=== PATIENT | male | born 1955 | race Caucasian/White ===

== ENCOUNTER 2019-10-20 01:45 | Emergency (ER) | payer MEDICARE, BC ==
[~2019-10-20] VITALS: Ht 185.4 cm; Wt 210.0 kg
[2019-10-20] MEDS ORDERED: LORazepam 1 MG tablet PO ONE (02:20)
[2019-10-20 02:46] LABS: ALANINE AMINOTRANSFERASE 64 U/L (12-78); ALBUMIN/GLOBULIN RATIO 1.2 (1.1-1.5); ALKALINE PHOSPHATASE 102 IU/L (46-116); ANION GAP 4 (8-16); ASPARTATE AMINO TRANSFERASE 31 U/L (10-37); BILIRUBIN,TOTAL 0.7 MG/DL (0.1-1.0); BLOOD UREA NITROGEN 14 MG/DL (7-18); BUN/CREATININE RATIO 15.6 (5.4-32.0); CALCIUM 8.8 MG/DL (8.5-10.1); CHLORIDE 105 MMOL/L (99-107); GLUCOSE 108 MG/DL (70-104); POTASSIUM 4.4 MMOL/L (3.5-5.1); SODIUM 141 MMOL/L (135-145); TOTAL CARBON DIOXIDE 32.5 MMOL/L (24-32); TOTAL PROTEIN 7.4 G/DL (6.4-8.2); eGFR 86 ML/MIN
--- NOTE | 2019-10-20 02:47 | NUR ---
pt reports nausea after being given the ativan tablet. Dr. North updated, verbal received for Zofran 4 mg iv. at bedside. Pt given pillow for under his knees fr comfort. VSS.
[2019-10-20] MEDS ORDERED: ondansetron/PF 4mg/2ml inj IV ONE (02:50)
[2019-10-20 03:27] LABS: BASOPHILS % (AUTO) 0.6 % (0-1); EOSINOPHILS # (AUTO) 0.1 X10'3 (0-0.9); EOSINOPHILS % (AUTO) 2.3 % (0-6); HEMATOCRIT 47.9 % (42.0-52.0); HEMOGLOBIN 16.4 g/dl (14.0-17.9); LYMPHOCYTES # (AUTO) 2.1 X10'3 (1.1-4.8); LYMPHOCYTES % (AUTO) 35.5 % (21-51); MEAN CORPUSCULAR HEMOGLOBIN 32.2 PG (27.0-31.0); MEAN CORPUSCULAR HGB CONC 34.3 g/dL (33.0-36.5); MEAN PLATELET VOLUME 9.6 FL (7.4-10.4); MONOCYTES # (AUTO) 0.6 X10'3 (0-0.9); MONOCYTES % (AUTO) 9.4 % (2-12); NEUTROPHILS # (AUTO) 3.2 X10'3 (1.8-7.7); NEUTROPHILS % (AUTO) 52.2 % (42-75); PLATELET COUNT 155 X10'3 (140-440); RED CELL DISTRIBUTION WIDTH 13.8 % (11.5-14.5); WHITE BLOOD COUNT 6.1 X10'3 (4.5-11.0)
--- NOTE | 2019-10-20 03:44 | NUR ---
Dr. North talking with pt and about lab results. decision made to do 3 hr trop then likely discharge to f/u with Dr. Lopez.
[2019-10-20] MEDS ORDERED: ALPR-623 PO (03:46)
--- NOTE | 2019-10-20 03:48 | NUR ---
Dr. North updated that Pt requests if given an antianxiety med, that it not be Ativan, as he thinks it made him nauseas earlier.
[2019-10-20] MEDS ORDERED: acetaminophen 325mg tablet PO ONE (04:00)
--- NOTE | 2019-10-20 04:42 | NUR ---
PT AND UPDATED THAT 3 HR TROP WILL BE DRAWN AT 5 AM.
[2019-10-20 05:59] VITALS: BP 136/72
== END 2019-10-20 06:01 | disposition home or self-care (01) ==
LOC: ER 01:46
DX: R07.89 Other chest pain (principal); I48.91 Unspecified atrial fibrillation; I10 Essential (primary) hypertension; Z98.890 Other specified postprocedural states; Z88.0 Allergy status to penicillin; Z88.1 Allergy status to other antibiotic agents; Z88.8 Allergy status to other drugs, medicaments and biological substances
CPT/HCPCS: 36415; 71045; 80053; 83735; 83880; 84484; 85025; 93005; 96374; 99284; J2405

== ENCOUNTER 2021-06-08 12:38 | Emergency (ER) | payer MEDICARE, BC ==
[~2021-06-08] VITALS: Ht 185.4 cm; Wt 118.2 kg
[~2021-06-08 12:38] MED LIST: APIX5TAB3 PO; FLEC100T35 PO; GABA600T13 PO; HYDR-3973 PO; LOSA100T57 PO; METO25TA6 PO; NORT10CA5 PO; OMEP-50 PO
[2021-06-08] MEDS ORDERED: normal saline 1000ml 1,000 ML IV ONE (12:55)
[2021-06-08] MEDS ORDERED: diltiazem 5mg/ml 5ml inj. IV ONE (12:55)
[2021-06-08 13:17] LABS: BASOPHILS % (AUTO) 0.5 % (0-1); EOSINOPHILS # (AUTO) 0.2 X10'3 (0-0.9); EOSINOPHILS % (AUTO) 2.6 % (0-6); HEMATOCRIT 43.9 % (42.0-52.0); HEMOGLOBIN 14.5 g/dl (14.0-17.9); LYMPHOCYTES # (AUTO) 2.9 X10'3 (1.1-4.8); LYMPHOCYTES % (AUTO) 38.9 % (21-51); MEAN CORPUSCULAR HEMOGLOBIN 31.2 PG (27.0-31.0); MEAN CORPUSCULAR VOLUME 94.6 FL (78-98); MEAN PLATELET VOLUME 9.6 FL (7.4-10.4); MONOCYTES # (AUTO) 0.6 X10'3 (0-0.9); MONOCYTES % (AUTO) 8.3 % (2-12); NEUTROPHILS # (AUTO) 3.7 X10'3 (1.8-7.7); NEUTROPHILS % (AUTO) 49.7 % (42-75); PLATELET COUNT 212 X10'3 (140-440); RED BLOOD COUNT 4.64 X10'6 (4.70-6.10); RED CELL DISTRIBUTION WIDTH 13.5 % (11.5-14.5); WHITE BLOOD COUNT 7.4 X10'3 (4.5-11.0)
[2021-06-08] MEDS ORDERED: metoprolol tartrate 1mg/ml inj IV SCH (13:40)
--- NOTE | 2021-06-08 13:40 | NUR ---
notified dr goodman regarding pt hr 160-170's as per he will order meds .will cont to monitor and medicate the pt.
--- NOTE | 2021-06-08 13:44 | NUR ---
pt hr 91 at this time.
[2021-06-08 13:55] LABS: ALANINE AMINOTRANSFERASE 46 U/L (12-78); ALBUMIN 3.7 G/DL (3.4-5.0); ALBUMIN/GLOBULIN RATIO 0.9 (1.1-1.5); ALKALINE PHOSPHATASE 129 IU/L (46-116); ANION GAP 9 (8-16); BILIRUBIN,TOTAL 0.5 MG/DL (0.1-1.0); BLOOD UREA NITROGEN 10 MG/DL (7-18); BUN/CREATININE RATIO 11.6 (5.4-32.0); CALCIUM 8.5 MG/DL (8.5-10.1); CHLORIDE 104 MMOL/L (99-107); CREATININE 0.86 MG/DL (0.60-1.10); GLUCOSE 111 MG/DL (70-104); SODIUM 143 MMOL/L (135-145); TOTAL CARBON DIOXIDE 30.2 MMOL/L (24-32); TOTAL PROTEIN 7.6 G/DL (6.4-8.2); eGFR 90 ML/MIN
[2021-06-08 14:02] LABS: ASPARTATE AMINO TRANSFERASE 30 U/L (10-37); MAGNESIUM 2.3 MG/DL (1.5-2.4); POTASSIUM 4.4 MMOL/L (3.5-5.1)
[2021-06-08] MEDS ORDERED: etomidate 2mg/ml inj. IV ONE (14:05)
[2021-06-08 15:25] VITALS: BP 133/88
== END 2021-06-08 15:27 | disposition home or self-care (01) ==
LOC: ER 12:39
DX: I48.20 Chronic atrial fibrillation, unspecified (principal); R06.02 Shortness of breath; R55 Syncope and collapse; R00.0 Tachycardia, unspecified; I10 Essential (primary) hypertension; Z85.9 Personal history of malignant neoplasm, unspecified; Z98.890 Other specified postprocedural states; Z88.0 Allergy status to penicillin; Z88.1 Allergy status to other antibiotic agents; Z88.8 Allergy status to other drugs, medicaments and biological substances; Z79.899 Other long term (current) drug therapy
CPT/HCPCS: 36415; 71045; 80053; 83735; 83880; 84484; 85025; 92960; 93005; 94799; 96361; 96374; 96375; 99285; J7030; J3490

== ENCOUNTER 2021-11-02 08:46 | Emergency (ER) | payer MEDICARE, BC ==
[~2021-11-02] VITALS: Ht 185.4 cm; Wt 96.8 kg
[2021-11-02] MEDS ORDERED: fentaNYL/PF 50MCG/1 ML 2ML syringe IV ONE (09:00)
[2021-11-02] MEDS ORDERED: ondansetron/PF 4mg/2ml inj IV ONE ×2 (09:00)
[2021-11-02] MEDS ORDERED: adenosine 3mg/ml 2ml vial IV ONE ×3 (09:00→09:05)
[2021-11-02] MEDS ORDERED: heparin 10,000 units/1 ML INJ IV ONE (09:00)
[2021-11-02] MEDS ORDERED: etomidate 2mg/ml inj. IV ONE (09:00)
--- NOTE | 2021-11-02 09:00 | NUR ---
pt appears to be in [facility] MD at bedside 3 doses of adenosine given without converscion etomidate given pt sedated and syncronized cardio version performed at 200js converscion successful repeat ekg completed
[2021-11-02 09:24] LABS: BASOPHILS % (AUTO) 0.5 % (0-1); EOSINOPHILS # (AUTO) 0.1 X10'3 (0-0.9); EOSINOPHILS % (AUTO) 1.6 % (0-6); HEMOGLOBIN 16.1 g/dl (14.0-17.9); LYMPHOCYTES # (AUTO) 3.1 X10'3 (1.1-4.8); LYMPHOCYTES % (AUTO) 42.8 % (21-51); MEAN CORPUSCULAR HEMOGLOBIN 31.4 PG (27.0-31.0); MEAN CORPUSCULAR HGB CONC 33.5 g/dL (33.0-36.5); MEAN CORPUSCULAR VOLUME 93.5 FL (78-98); MEAN PLATELET VOLUME 9.8 FL (7.4-10.4); MONOCYTES # (AUTO) 0.6 X10'3 (0-0.9); MONOCYTES % (AUTO) 8.4 % (2-12); NEUTROPHILS # (AUTO) 3.4 X10'3 (1.8-7.7); NEUTROPHILS % (AUTO) 46.7 % (42-75); PLATELET COUNT 213 X10'3 (140-440); RED BLOOD COUNT 5.14 X10'6 (4.70-6.10); RED CELL DISTRIBUTION WIDTH 14.3 % (11.5-14.5); WHITE BLOOD COUNT 7.3 X10'3 (4.5-11.0)
[2021-11-02 09:31] LABS: ALBUMIN 3.7 G/DL (3.4-5.0); ALBUMIN/GLOBULIN RATIO 1.1 (1.1-1.5); ANION GAP 9 (8-16); BILIRUBIN,TOTAL 0.8 MG/DL (0.1-1.0); BLOOD UREA NITROGEN 10 MG/DL (7-18); BUN/CREATININE RATIO 8.5 (5.4-32.0); CALCIUM 8.8 MG/DL (8.5-10.1); CHLORIDE 102 MMOL/L (99-107); CREATININE 1.17 MG/DL (0.60-1.10); GLUCOSE 193 MG/DL (70-104); POTASSIUM 4.7 MMOL/L (3.5-5.1); SODIUM 140 MMOL/L (135-145); TOTAL CARBON DIOXIDE 28.6 MMOL/L (24-32); eGFR 63 ML/MIN
[2021-11-02 09:32] LABS: ALANINE AMINOTRANSFERASE 73 U/L (12-78); ALKALINE PHOSPHATASE 91 IU/L (46-116); ASPARTATE AMINO TRANSFERASE 32 U/L (10-37)
[2021-11-02 09:34] LABS: D-DIMER 0.23 MG/L FEU (0-0.50)
[2021-11-02 11:19] VITALS: BP 129/74
== END 2021-11-02 11:20 | disposition home or self-care (01) ==
LOC: ER 08:47
DX: R00.0 Tachycardia, unspecified (principal); R42 Dizziness and giddiness; R51.9 Headache, unspecified; I48.91 Unspecified atrial fibrillation; I10 Essential (primary) hypertension; Z98.890 Other specified postprocedural states; Z88.0 Allergy status to penicillin; Z88.1 Allergy status to other antibiotic agents; Z88.2 Allergy status to sulfonamides; Z88.8 Allergy status to other drugs, medicaments and biological substances
CPT/HCPCS: 36415; 71045; 80053; 83880; 84443; 84484; 85025; 85379; 93005; 94799; 96374; 96375; 96376; 99285; J0153; J2405; J3010; J3490; 94760

== ENCOUNTER 2022-03-01 05:25 | Inpatient (IN) | payer MEDICARE, BC ==
[2022-02-20 12:31] LABS: BASOPHILS % (AUTO) 0.3 % (0-1); EOSINOPHILS # (AUTO) 0.1 X10'3 (0-0.9); EOSINOPHILS % (AUTO) 3.1 % (0-6); LYMPHOCYTES # (AUTO) 1.7 X10'3 (1.1-4.8); MEAN CORPUSCULAR HEMOGLOBIN 31.3 PG (27.0-31.0); MEAN CORPUSCULAR HGB CONC 33.4 g/dL (33.0-36.5); MEAN CORPUSCULAR VOLUME 93.6 FL (78-98); MEAN PLATELET VOLUME 9.7 FL (7.4-10.4); MONOCYTES # (AUTO) 0.4 X10'3 (0-0.9); MONOCYTES % (AUTO) 8.3 % (2-12); NEUTROPHILS # (AUTO) 2.5 X10'3 (1.8-7.7); NEUTROPHILS % (AUTO) 52.3 % (42-75); PRE OP HEMATOCRIT 44.3 % (42.0-52.0); PRE OP HEMOGLOBIN 14.8 g/dL (14.0-17.9); PRE OP PLATELET COUNT 169 X10'3 (140-440); RED BLOOD COUNT 4.74 X10'6 (4.70-6.10)
[2022-02-20 12:46] LABS: ALBUMIN 3.6 G/DL (3.4-5.0); ALBUMIN/GLOBULIN RATIO 1.1 (1.1-1.5); ALKALINE PHOSPHATASE 89 IU/L (46-116); BLOOD UREA NITROGEN 12 MG/DL (7-18); BUN/CREATININE RATIO 14.8 (5.4-32.0); CALCIUM 8.6 MG/DL (8.5-10.1); CREATININE 0.81 MG/DL (0.60-1.10); PRE OP ALT 61 U/L (30-65); PRE OP AST 28 U/L (10-37); PRE OP BILIRUB, TOTAL 0.6 MG/DL (0.0-1.0); PRE OP GLUCOSE 111 MG/DL (70-104); eGFR > 90 ML/MIN
[2022-02-20 12:47] LABS: TOTAL CARBON DIOXIDE 33.4 MMOL/L (24-32)
[2022-02-20 13:09] LABS: CHLORIDE 103 MMOL/L (99-107); PRE OP ANION GAP 4 (8-16); PRE OP POTASSIUM 4.2 MMOL/L (3.4-5.1); PRE OP SODIUM 140 MMOL/L (135-145)
[~2022-03-01] VITALS: Ht 185.4 cm; Wt 98.0 kg
[2022-03-01] VITALS (24 sets, daily range): BP systolic 100–153; BP diastolic 59–91
[~2022-03-01 05:25] MED LIST changes: -OMEP-50 PO; +OMEP20CA16 PO; +ringers solution, lacted 1,000 ML IV SCH
[2022-03-01] MEDS ORDERED: vancomycin 1,500 MG in NS 300ml IV soln IV ONE (05:30)
[2022-03-01] MEDS ORDERED: famotidine 20mg tablet PO ONE (05:30)
[2022-03-01] MEDS ORDERED: DOCUMENT DATE & TIME OF BETA-BLOCKER PO ONE (05:30)
[2022-03-01] MEDS ORDERED: tranexamic acid inj. 1,000 MG in normal saline 100ml IV soln 90 ML IV ONE (05:30)
--- NOTE | 2022-03-01 06:02 | NUR ---
PATIENT HAS SEEN ORTHO DVD, RECEIVED OINTMENT AND TAKEN SHOWERS PREOP ORDERED. CSM INTACT
[2022-03-01] MEDS ORDERED: ketorolac trometh. 30mg/ml inj. ONE (07:01)
[2022-03-01] MEDS ORDERED: morphine 10mg/ml inj. ONE (07:02)
[2022-03-01] MEDS ORDERED: Thrombin (Bovine) 5,000 unit vial TP ONE (07:02)
[2022-03-01] MEDS ORDERED: epiNEPHrine 1 mg/ml inj ONE (07:02)
[2022-03-01] MEDS ORDERED: vancomycin 1,000mg inj ONE (07:02)
[2022-03-01] MEDS ORDERED: ROPIVAcaine 0.5% (5mg/ml) 30ml vial ONE (07:02)
[2022-03-01] MEDS ORDERED: scopolamine 1mg/72 hr patch TD ONE (07:21)
[2022-03-01] MEDS ORDERED: tetracaine 1% (10mg/ml) pres. free inj. ONE (07:33)
[2022-03-01] MEDS ORDERED: fentaNYL/PF 50MCG/1 ML 2ML syringe ONE ×2 (07:34→09:23)
[2022-03-01] MEDS ORDERED: MIDAZolam 1 MG/ML 5ML VIAL ONE (07:35)
[2022-03-01] MEDS ORDERED: cloNIDine hcl/PF 100mcg/ml inj ONE (07:39)
[2022-03-01] MEDS ORDERED: morphine 2 MG/ML inj. syringe IV PRN (09:45)
[2022-03-01] MEDS ORDERED: meperidine/PF 25mg/ml syringe IV PRN ×3 (09:45)
[2022-03-01] MEDS ORDERED: proCHLORperazine 10 MG/2 ml inj IV PRN (09:45)
[2022-03-01] MEDS ORDERED: ROPIVAcaine 0.2% (10 MG/5 ML) BOLUS INJECTION ADDCANAL PRN (09:45)
[2022-03-01] MEDS ORDERED: ondansetron/PF 4mg/2ml inj IV PRN ×2 (09:45→11:05)
[2022-03-01] MEDS ORDERED: ROPIVAcaine 0.2%/PF PUMP/bolus 545 ML ADDCANAL SCH (09:45)
[2022-03-01] MEDS ORDERED: morphine 4 MG/ML inj SYRINge IV PRN (09:45)
[2022-03-01] MEDS ORDERED: ringers solution, lacted 1,000 ML IV SCH (09:45)
[2022-03-01] MEDS ORDERED: gelatin sponge, absorbable (Gelfoam 100) sponge TP ONE (09:46)
[2022-03-01] MEDS ORDERED: diphenhydrAMINE 50 mg/ml inj ONE (09:56)
[2022-03-01] MEDS ORDERED: albumin (Human) 5% 250ml 500 ML IV ONE (09:56)
[2022-03-01] MEDS ORDERED: propofol inj 60 ML IV ONE (09:56)
[2022-03-01] MEDS ORDERED: dexamethasone sod phosphate 4mg/ml inj. ONE (09:56)
[2022-03-01] MEDS ORDERED: hydrALAZINE 20mg/ml inj. IV ONE (09:57)
[2022-03-01] MEDS ORDERED: ceFAZolin 1000mg inj ONE (09:57)
[2022-03-01] MEDS ORDERED: acetaminophen 1,000mg/100ml IV 100 ML IV ONE (10:47)
[2022-03-01] MEDS ORDERED: HYDROmorphone 1 mg/ml syringe IV PRN (11:05)
[2022-03-01] MEDS ORDERED: naloxone 0.4 mg/ml inj IV PRN (11:05)
[2022-03-01] MEDS ORDERED: HYDROmorphone inj. 0.5 MG/0.5 ML DISP.SYRIN IV PRN (11:05)
[2022-03-01] MEDS ORDERED: magnesium hydroxide 30ml (MOM) UD suspension PO PRN (11:05)
[2022-03-01] MEDS ORDERED: oxyCODONE IR 5mg (immed. release) tablet PO PRN (11:05)
[2022-03-01] MEDS ORDERED: diphenhydrAMINE 25mg capsule PO PRN ×2 (11:05)
[2022-03-01] MEDS: potassium cl 20mEq in 1/2 NS 1,000 ML IV SCH ×2 (11:05→21:15)
[2022-03-01] MEDS ORDERED: bisacodyl 10mg suppository rectal RC PRN (11:05)
[2022-03-01] MEDS ORDERED: acetaminophen 325mg tablet PO PRN (11:05)
--- NOTE | 2022-03-01 11:14 | NUR ---
Received from OR via BED , accompanied by Anesthesiologist KIKO and report given by Anesthesiolgist. PT IS SLEEPY, AROUSABLE TO VERBAL STIMULATION, IV SITE CHECKED INFUSING WELL, ISTAT ORDERED BY DR HOOVER, COMPLETED HGB 12.6. ICE PACK IN PLACE, PT ABLE TO MOVE UPPER ARMS DECREASED MOVEMENT AND SENSATION TO LOWER EXTREMITIES AT THIS TIME.
[2022-03-01] MEDS ORDERED: tranexamic acid inj. 1,000 MG in normal saline 100ml IV soln 100 ML IV ONE (11:24)
--- NOTE | 2022-03-01 12:44 | NUR ---
REPORT GIVEN TO FANNIE BLANTON, TXA 1415 DOSE ON CHART WILL BE TRANSFERRED WITH PT. SCOPALOMINE PATCH REMOVED FROM PT PER DR HOOVER
--- NOTE | 2022-03-01 12:45 | NUR ---
Recieved report from educational/development assistant
[2022-03-01] MEDS ORDERED: gabapentin 300mg capsule PO SCH (13:00)
--- NOTE | 2022-03-01 13:14 | NUR ---
PT TRANSFERRED TO ROOM VIA BED WITH KENYATTA. PT IS PAIN FREE, NO SIGNS OF BLEEDING, FANNIE AT BEDSIDE UPON ARRIVE, CALL LIGHT IN REACH AND ATTACHED TO VITAL MACHINE. SPOKE TO PTS WHO WAS IN THE PARKING LOT, PTS ROOM NUMBER WAS GIVEN, SHE STATED SHE WAS ON HER WAY UP.
[2022-03-01] MEDS: oxyCODONE IR 5mg (immed. release) tablet PO PRN ×2 (14:02→21:06)
[2022-03-01] MEDS: ceFAZolin/D5W- 1GM premix 50 ML IV SCH (16:22)
[2022-03-01] MEDS: acetaminophen 325mg tablet PO SCH ×2 (16:23→21:08)
--- NOTE | 2022-03-01 19:10 | NUR ---
requested RX send vanco dose for 1999 and input home medications as were ordered via telephone from dr. Aguilar
--- NOTE | 2022-03-01 19:40 | NUR ---
cleaned right arm old IV site. patient attempted to pull off iv and bled earlier. cleaned dried blood. found multiple skin tears, cleaned, covered with large bandaid, applied gentle pressure. pt refused neosporin "I'm allergic"
[2022-03-01] MEDS ORDERED: vancomycin/NS 1 GM ADD-VANTAGE 250 ML IV SCH (20:00)
[2022-03-01] MEDS ORDERED: apixaban 5mg tablet PO SCH (20:00)
--- NOTE | 2022-03-01 20:00 | NUR ---
pt noted sensation from inside ankle to knee tingling. will continue to monitor
[2022-03-01] MEDS ORDERED: losartan 50mg tablet PO SCH (21:00)
[2022-03-01] MEDS ORDERED: nortriptyline 10mg capsule PO SCH (21:00)
[2022-03-01] MEDS: metoprolol tartrate 25mg tablet PO SCH (21:00)
[2022-03-01] MEDS ORDERED: sennosides 8.6mg tablet PO SCH (21:00)
[2022-03-01] MEDS: gabapentin 300mg capsule PO SCH (21:09)
[2022-03-01] MEDS: flecainide 50mg tablet PO SCH (21:37)
[2022-03-02] MEDS: ceFAZolin/D5W- 1GM premix 50 ML IV SCH (00:41)
[2022-03-02] MEDS: oxyCODONE IR 5mg (immed. release) tablet PO PRN ×2 (00:42→05:24)
[2022-03-02 02:00] VITALS: BP 137/74
[2022-03-02] MEDS: potassium cl 20mEq in 1/2 NS 1,000 ML IV SCH (03:05)
[2022-03-02] MEDS: acetaminophen 325mg tablet PO SCH ×2 (03:46→08:22)
[2022-03-02] MEDS: gabapentin 300mg capsule PO SCH ×2 (03:46→08:22)
--- NOTE | 2022-03-02 06:11 | NUR ---
reported to days. noted pt would like to go home today pending work with PT. on Q at 12
--- NOTE | 2022-03-02 06:40 | NUR ---
Received report from HARVINDER Escobar
[2022-03-02 06:52] VITALS: BP 128/63
[2022-03-02] MEDS ORDERED: pantoprazole 40mg Tablet.DR PO SCH (07:00)
[2022-03-02 07:02] LABS: BASOPHILS % (AUTO) 0.2 % (0-1); EOSINOPHILS % (AUTO) 0.4 % (0-6); HEMATOCRIT 32.8 % (42.0-52.0); HEMOGLOBIN 11.1 g/dl (14.0-17.9); LYMPHOCYTES # (AUTO) 1.9 X10'3 (1.1-4.8); LYMPHOCYTES % (AUTO) 22.2 % (21-51); MEAN CORPUSCULAR HGB CONC 33.9 g/dL (33.0-36.5); MEAN CORPUSCULAR VOLUME 94.3 FL (78-98); MEAN PLATELET VOLUME 9.6 FL (7.4-10.4); MONOCYTES # (AUTO) 0.9 X10'3 (0-0.9); MONOCYTES % (AUTO) 10.7 % (2-12); NEUTROPHILS # (AUTO) 5.7 X10'3 (1.8-7.7); NEUTROPHILS % (AUTO) 66.5 % (42-75); PLATELET COUNT 142 X10'3 (140-440); RED BLOOD COUNT 3.47 X10'6 (4.70-6.10); WHITE BLOOD COUNT 8.5 X10'3 (4.5-11.0)
[2022-03-02 07:12] LABS: ANION GAP 8 (8-16); CHLORIDE 104 MMOL/L (99-107); SODIUM 138 MMOL/L (135-145); TOTAL CARBON DIOXIDE 25.6 MMOL/L (24-32)
[2022-03-02] MEDS ORDERED: enoxaparin 40mg/0.4ml syringe SQ SCH (08:00)
[2022-03-02] MEDS: flecainide 50mg tablet PO SCH (08:23)
[2022-03-02 09:45] VITALS: BP_SYST 145
[2022-03-02] MEDS: metoprolol tartrate 25mg tablet PO SCH (09:45)
[2022-03-02] MEDS ORDERED: apixaban 5mg tablet PO SCH (10:00)
--- NOTE | 2022-03-02 12:31 | NUR ---
Phone call placed to Dr. Aguilar for discharge to home as patient was safe with physical therapy Dr. Aguilar in agreeance with this telephone order for discharge received. Patient was discharged to home via wheelchair to private vehicle with . All discharge instructions given to patient and and were received and understood. Dressing changed prior to dc in accordinance with MD orders. All medications prescribed for patient prior to discharge as well. New ONQ ball provided for patient for discharge.
[2022-03-02] MEDS ORDERED: celeCOXIB 100mg capsule PO SCH (20:00)
[2022-03-03] MEDS ORDERED: acetaminophen 325mg tablet PO PRN (11:05)
== END 2022-03-02 12:35 | disposition home or self-care (01) | DRG 470 ==
LOC: PAS IN 05:25 → ORTHO 4S 16:25
PROVIDERS: ADMIT Orthopaedic Surgery; ATTEND Orthopaedic Surgery
PROC: 3E0T3BZ Introduction of Anesthetic Agent into Peripheral Nerves and Plexi, Percutaneous Approach (ICD-10-PCS; 2022-03-01)
PROC: 3E0T33Z Introduction of Anti-inflammatory into Peripheral Nerves and Plexi, Percutaneous Approach (ICD-10-PCS; 2022-03-01)
PROC: 0SRD0J9 Replacement of Left Knee Joint with Synthetic Substitute, Cemented, Open Approach (ICD-10-PCS; principal; 2022-03-01 07:41)
DX: M17.12 Unilateral primary osteoarthritis, left knee (principal); I10 Essential (primary) hypertension; K21.9 Gastro-esophageal reflux disease without esophagitis; I48.91 Unspecified atrial fibrillation; Z88.0 Allergy status to penicillin; Z88.2 Allergy status to sulfonamides; Z88.8 Allergy status to other drugs, medicaments and biological substances
CPT/HCPCS: 36415; 73560; 80047; 80051; 80053; 82948; 83880; 85025; 87081; 97110; 97116; 97161; 97530; A4215; A7000; C1713; C1758; C1776; C9250; G0378; J0131; J0171; J0360; J0690; J0735; J1100; J1200; J1885; J2250; J2274; J2704; J2795; J3010; J3370; J3480; J3490; J7040; J7120; P9045; U0003; U0005

== ENCOUNTER 2022-03-03 14:36 | Emergency (ER) | payer MEDICARE, BC ==
[~2022-03-03] VITALS: Ht 182.9 cm; Wt 90.9 kg
[~2022-03-03 14:36] MED LIST changes: -ringers solution, lacted 1,000 ML IV SCH
[2022-03-03] MEDS ORDERED: normal saline 1000ML IV soln IVB ONE (15:20)
[2022-03-03] MEDS ORDERED: morphine 4 MG/ML inj SYRINge IV ONE (15:20)
[2022-03-03] MEDS ORDERED: ondansetron/PF 4mg/2ml inj IV ONE (15:20)
[2022-03-03] MEDS ORDERED: iohexol 350MG/ML 100ml bottle IV ONE (15:20)
[2022-03-03 16:04] LABS: BASOPHILS % (AUTO) 0.2 % (0-1); EOSINOPHILS # (AUTO) 0.1 X10'3 (0-0.9); EOSINOPHILS % (AUTO) 1.7 % (0-6); HEMATOCRIT 30.3 % (42.0-52.0); HEMOGLOBIN 10.2 g/dl (14.0-17.9); LYMPHOCYTES # (AUTO) 1.6 X10'3 (1.1-4.8); LYMPHOCYTES % (AUTO) 19.9 % (21-51); MEAN CORPUSCULAR HGB CONC 33.8 g/dL (33.0-36.5); MEAN CORPUSCULAR VOLUME 94.8 FL (78-98); MEAN PLATELET VOLUME 9.4 FL (7.4-10.4); MONOCYTES # (AUTO) 1.3 X10'3 (0-0.9); MONOCYTES % (AUTO) 15.9 % (2-12); NEUTROPHILS # (AUTO) 4.9 X10'3 (1.8-7.7); NEUTROPHILS % (AUTO) 62.3 % (42-75); PLATELET COUNT 147 X10'3 (140-440); RED BLOOD COUNT 3.19 X10'6 (4.70-6.10); WHITE BLOOD COUNT 7.9 X10'3 (4.5-11.0)
[2022-03-03 16:06] LABS: D-DIMER 1.52 MG/L FEU (0-0.50)
--- NOTE | 2022-03-03 16:10 | NUR ---
Pt having palpitations, but at my time of exam pt was NSR in the 90s.
[2022-03-03 16:12] LABS: ALANINE AMINOTRANSFERASE 30 U/L (12-78); ALBUMIN/GLOBULIN RATIO 0.9 (1.1-1.5); ALKALINE PHOSPHATASE 59 IU/L (46-116); ANION GAP 8 (8-16); ASPARTATE AMINO TRANSFERASE 24 U/L (10-37); BILIRUBIN,TOTAL 0.5 MG/DL (0.1-1.0); BLOOD UREA NITROGEN 10 MG/DL (7-18); BUN/CREATININE RATIO 13.3 (5.4-32.0); CALCIUM 8.6 MG/DL (8.5-10.1); CHLORIDE 104 MMOL/L (99-107); CREATININE 0.75 MG/DL (0.60-1.10); GLUCOSE 147 MG/DL (70-104); POTASSIUM 3.9 MMOL/L (3.5-5.1); SODIUM 139 MMOL/L (135-145); TOTAL CARBON DIOXIDE 26.8 MMOL/L (24-32); TOTAL PROTEIN 6.2 G/DL (6.4-8.2); eGFR > 90 ML/MIN
--- NOTE | 2022-03-03 16:15 | NUR ---
Pt states that he wants to go home. Wants to check out AMA because "Morphine doesn't do anything for my pain." PA notified.
--- NOTE | 2022-03-03 16:31 | NUR ---
PA in to talk with pt about risks of his decision to AMA.
[2022-03-03] MEDS ORDERED: oxyCODONE IR 5mg (immed. release) tablet PO ONE ×2 (16:40→18:05)
[2022-03-03 18:14] VITALS: BP 168/84
== END 2022-03-03 18:22 | disposition home or self-care (01) ==
LOC: ER 14:36
DX: R00.2 Palpitations (principal); M25.562 Pain in left knee; R06.02 Shortness of breath; M79.605 Pain in left leg; Z96.652 Presence of left artificial knee joint; I48.91 Unspecified atrial fibrillation; I10 Essential (primary) hypertension; Z85.9 Personal history of malignant neoplasm, unspecified; Z88.0 Allergy status to penicillin; Z88.1 Allergy status to other antibiotic agents; Z88.2 Allergy status to sulfonamides; Z88.8 Allergy status to other drugs, medicaments and biological substances; Z79.899 Other long term (current) drug therapy
CPT/HCPCS: 36415; 71275; 80053; 84484; 85025; 85379; 93005; 93971; 96361; 96374; 96375; 99285; J2270; J2405; J7030; Q9967